=== PATIENT | female | born 1990 | race Caucasian/White ===

== ENCOUNTER → 2020-05-24 | Outpatient (CLI) | payer OTHER, SELFPAY ==
[2020-05-26 08:09] LABS: Chlamydia By Nucleic Acid AMP Negative (Negative)
[2020-05-26 13:08] LABS: Gonococcus By Nucleic Acid AMP Negative (Negative)
[2020-05-27 14:41] LABS: HPV Reflexed? NOT INDICATED
== END | disposition home or self-care (01) ==
LOC: LABSPEC 09:32
PROVIDERS: Visit Provider Obstetrics & Gynecology
DX: Z11.3 Encounter for screening for infections with a predominantly sexual mode of transmission (principal); Z12.4 Encounter for screening for malignant neoplasm of cervix
CPT/HCPCS: 87491; 87591; 88175; G0145

== ENCOUNTER → 2020-11-02 14:25 | Outpatient (CLI) | payer OTHER, SELFPAY | PROVIDERS: PCP Family Medicine; Referring Provider Obstetrics & Gynecology; Visit Provider Obstetrics & Gynecology | DX: Z03.818 Encounter for observation for suspected exposure to other biological agents ruled out (principal) | CPT/HCPCS: 87635; C9803; U0005; U0003 ==

== ENCOUNTER 2020-11-06 09:30 | Inpatient (IN) | payer SELFPAY, OTHER ==
--- NOTE | 2020-11-05 19:32 | PCM.HP.BLA ---
History and Physical Date of Admission: 11/06/20 ACOG ANTEPARTUM RECORD - HISTORY AND PHYSICAL (11/05/2020) Name: STEWART RIOS History of this : This is a 30 year old [id number] presents at 39 wks + 1 days gestation. She had 3 prior C-sections. She also desires permanent sterilization. OB Physician: Thor Acuna MD [facility]'s Physician: [facility] ...................................................................... : 1990 Age: 30 Address: [address] [place] [address] Phone: H) [phone] ([phone] Insurance Carrier: [facility] [id number] Emergency Contact: DEIDRA RIOS/SPOUSE [phone] ...................................................................... Final DAVINA: 11/11/20 By Ultrasound: 15 weeks 3 days PARITY: (G-Total Pregnancies P-Fullterm,Premature,Induced AB,Spont AB, Ectopics, Multiple,Living) DAVINA CONFIRMATION: By LMP: 02/05/20 Final DVAINA: 11/11/20 OB PROBLEM LIST: ALLERGIC TO BETADINE. Declines all genetics testing. Presumptive COVID at 24 weeks gestation Prior x 3; plan repeat with tubal ALLERGIES: Betadine Rash, itching No Known Drug Allergies MEDICATIONS: Supplement (s) [No Strength] mama bear prenatals SOCIAL HISTORY: Smoking - denies smoking Alcohol Use - denies drinking Diet - balanced Diet, caffeine < 2 drinks per day and water tries 64-90 oz Lifestyle - Exercise - active work and trying to walk daily. Employer - homemaker Job Description - Illicit Drug Use - denies use of street drugs Sexual Activity - [employer]IVE [employer] Residence - lives with Place of - [place] Spouse-Sig Other Name - Deidra Rios Spouse-Sig Other Occupation - construction/[employer] Spouse-Sig Other Phone No - [phone] Children Name(s) - Jacoby ManiAmy gonzalez PRIOR DELIVERY HISTORY DEL DATE GEST LAB WT LB WT OZ TYPE ANES LABOR TX 17 Sep 15 39 0 7 12 C-Sec Spinal No 19 Dec 17 39 0 8 6 C-Sec Spinal No 24 Aug 15 37 0 5 15 C-Sec Spinal No ANTEPARTUM FLOW CHART VISIT GE RTC FU F F AK U U DATE WK MD WKS HT PN HR M SS BP ED WT AK GL D EF ST __ ____ ___ __ __ ___ __ __ __ ___ __ __ __ ___ __ 04 Oct JM 1 38 V + + 126/86 sl 245 - - Sep JM 1 37 V + + 124/76 sl 243 tr - 1 Sep JMW 1 36 + + 122/80 sl 242 tr ne Aug JMW 2 33 + + 128/70 sl 240 tr - 08 Sep 27 JMW 3 30 + + 136/86 sl 238 - - 03 Aug 23 JMW 3 25 + + 116/74 sl 232 - - 06 Jul 19 JMW 4 21 + + 112/64 0 230 tr - ANTEPARTUM NOTE(S): Nov 02 2020: spontaneous ctx's Oct 26 2020: See note Oct 19 2020: Good FM Sep 26 2020: Vericosities Lt leg, encouraged support stockings Sep 05 2020: CBC,OGCT Today,Good FM,Feeling Well Aug 01 2020: Doing Well, Glucola Given Jul 04 2020: Doing Well, Comprehensive U/S COMPREHENSIVE ANTEPARTUM NOTE(S): Nov 02 2020: Stewart is here for a PNV. Good FM. Sl edema in ankles. Reports spontaneous ctx's. No concerns expressed at this time. States she is ready to have her . Nov 02 2020: 38wk, for repeat c/s by Dr. BRIONES 11/06/20. COVID testing done today. Oct 26 2020: Stewart is here for her PNV. She relates that she is not feeling well, as she as L sided low pelvic groin pain that started on Friday of this week, and is now radiating to her lower back, left side. She states that Tylenol does not relieve this discomfort, and that the discomfort is usually not bad in the morning, but by noon, it's really sore. She reports good FM. She feels occasional mild cramping. Denies spotting/LoF. Long dip urine shows: specific gravity of 1.025, and TR protein; all other values negative. AW Oct 26 2020: 37wk, pelvic pain. Urine dip neg. CE /h. Scheduled repeat c/s here in [place] 11/06/20 w/ Dr. Acuna. Needs COVID testing next week. Oct 19 2020: Stewart is here for PNV and pre-op for /tubal on 11-06-2020. Having good FM. Slight edema noted in ankles. Increase by end of day. Urine dipped tr and neg. Consents signed and pre-op instructions given. Voiced understanding. Ensure bottle given. Instructed to call and schedule COVID test. Questions answered. LSS Sep 05 2020: Rx phenergan with codeine syrup given for non-prooductive cough past 4-5 days. 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 She tried nursing her first baby (37 w male PCS) without success and formula fed the other two. Suggested considering nursing winter baby for immune system advantages. Asking her friends who've nursed for advice or taking the office BF class. Her is Deidra who works in [employer]. They are pleased about the pg. Their children are two boys ages 5 and 3 and a daughter 1 1/2 y. Genetics Screening form completed at prev visit noting no family issues and she declines any genetics testing. Stewart is a lifetime non smoker, denies street drug use and any alcohol use. Her diet sounds balanced w occ tea and 64-90 oz of water daily. Stewart is very active with her family and chores and does try to walk any day she can. She has an allergy to Betadine which causes a rash and itching noted at her PCS. States I always remind them to use the other stuff Warning signs in pg reviewed as well as wearing seatbelt low on her abdomen regardless of location in a vehicle, the importance of protein in her diet, reaching the office after hours and OTC meds ok to take prn plus lifting restriction of 25# with understanding voiced. She's had chickenpox and they have no cats. She is aware of litter box issues. They have a copy of What to Expect. Enc to call w any concerns. Visit lasted 30 min. Her phone cut us off three times and I called back each time. Crow DENNY. NEW May 23 2020: Stewart presents for her Missed Menses feli't. SHe is a 29yo G 4, P 3 with hx of 3 prior C-sections. Pt is planning to deliver via R/ with BTO and prefers [facility] if possible. Positive UPT in office today. LMP 02/05/20, DAVINA by LMP 11/11/20. Pt is taking a PNV. She reported significant Nausea, but sts this subsided approx 3-4wks ago. No questions or concerns voiced. NOB packet given. Genetics screening questionairre completed and AFP reviewed with same declined. Depression screen is a score of 1 today. JT REVIEW OF SYSTEMS: GENERAL - Denies fever, or chills SKIN - Denies rash, new skin lesions, or change in moles EYES - Denies blurred vision, or change in visual acuity EARS - Denies ear pain, or difficulty hearing NOSE - Denies nasal congestion, discharge, or bleeding MOUTH - Denies sore throat, or difficulty swallowing NECK - Denies pain or swelling RESPIRATORY - Denies shortness of breath, cough, wheezing CARDIOVASCULAR - Denies palpitations, chest pain, orthopnea, PND, peripheral edema, syncope or claudication GASTROINTESTINAL - Denies nausea, vomiting, diarrhea, constipation, Denies abdominal pain, melena and or bright red blood GENITOURINARY - Denies dysuria, frequency of urination, urgency, or hesitancy MUSCULOSKELETAL - Denies joint or muscle pain, or back pain NEUROLOGICAL - Denies localized numbness, weakness, or tingling PSYCHIATRIC - Denies depression, anxiety, substance abuse or suicide attempts ENDOCRINE - Denies heat or cold intolerance, weight loss or gain, increasing thirst HEMATO-IMMUNOLOGIC - Denies easy bruising, bleeding, oral ulcerations or recurrent infections GENETICS SCREENING: Age 35+ years: No Thalassemia: No Neural Tube Defect: No Down Syndrome: No CHRISTIANA-SACHS: No Sickle Cell Disease: No Hemophilia: No Musc. Dystrophy: No Cystic Fibrosis: No-declines screening [place] Chorea: No Mental Retardation: No Fragile X: No Other genetic: No Other defects: No SABs/still births: No Drugs since LMP: No INFECTION HISTORY: High risk AIDS: No High risk Hepatitis: No Exposed to TB: No Exposed to Herpes: No Rash/viral illness since LMP: No History of STD: No MENSTRUAL HISTORY: *Menses Amount/Duration: 4-5 DAYSMenses Regularity: RegularFrequency: monthly* PAST SUMMARY: PARITY: 1. Total Pregnancies............ 4 2. Full Term Pregnancies........ 3 3. Premature.................... 0 4. Abortions - Induced.......... 0 5. Abortions - Spontaneous...... 0 6. Ectopics..................... 0 7. Multiple Births.............. 0 8. Living Children.............. 3 PAST #1: Date of :.................. 05/22/15 Gestation Weeks:................ 37 Length of labor(hours):......... 0 Sex:............................ M Weight-lbs:............... 5 Weight-oz:................ 15 Type of Delivery:............... C-Sect Type of Anesthesia:............. Spinal Place of Delivery:.............. [place] Treatment of Labor?:.... No Comment: [facility] PAST #2: Date of :.................. 01/15/17 Gestation Weeks:................ 39 Length of labor(hours):......... 0 Sex:............................ M Weight-lbs:............... 8 Weight-oz:................ 6 Type of Delivery:............... C-Sect Type of Anesthesia:............. Spinal Place of Delivery:.............. [place] Treatment of Labor?:.... No Comment: HIGH BP PAST #3: Date of :.................. 09/14/18 Gestation Weeks:................ 39 Length of labor(hours):......... 0 Sex:............................ F Weight-lbs:............... 7 Weight-oz:................ 12 Type of Delivery:............... C-Sect Type of Anesthesia:............. Spinal Place of Delivery:.............. [place] Treatment of Labor?:.... No Comment: HIGH BP PHYSICAL EXAMINATION General Appearence: 30 yo female in no acute distress Vital Signs: AF, VSS Heart: RRR without rubs or gallops Lungs: CTA x 2 Breasts: deferred Abdomen: gravid Pelvis: Cervix: Presentation: cephalic Station: Fetus: Size: AGA Movement: present Heart: present LAB TEST(S) ORDERED SINCE:02/15/20 09/05/2020 GLUCOSE CHALLENGE 50GM 1 HOUR 09/05/2020 CBC + DIFF 05/31/2020 Initial OB Labs 05/27/2020 PAP IG W/REFLEX HR HPV APTIMA 05/26/2020 CHLAMYDIA/GC PAUL APTIMA 05/25/2020 POMERENE 3 [CCL] 05/25/2020 HEPATITIS C AB IA W/CONFIRM [CCL] 05/23/2020 URINALYSIS 05/23/2020 TSH 05/23/2020 CBC + DIFF 05/23/2020 BB TYPE 11/03/2020 COVID 19, PAUL SENDOUT == ==== Order Observation Description Value Ref_Range A* Site == ==== COVID 19, PAUL NOTE [facility] COVID 19, PAUL COVID-19,PAUL Not Detected Not Detected LCI This nucleic acid amplification test was developed and its performance characteristics determined by [facility]. Nucleic acid amplification tests include RT- PCR and TMA. This test has not been FDA cleared or approved. This test has been authorized by FDA under an Emergency Use Authorization (EUA). This test is only authorized for the duration of time the declaration that circumstances exist justifying the authorization of the emergency use of in vitro diagnostic tests for detection of SARS-CoV-2 virus and/or diagnosis of COVID-19 infection under section 564(b)(1) of the Act, 21 U.S.C. 360bbb-3(b) (1), unless the authorization is terminated or revoked sooner. When diagnostic testing is negative, the possibility of a false negative result should be considered in the context of a patient's recent exposures and the presence of clinical signs and symptoms consistent with COVID-19. An individual without symptoms of COVID-19 and who is not shedding SARS-CoV-2 virus would expect to have a negative (not detected) result in this assay. GLUCOSE CHALLEN NOTE [facility] GLUCOSE CHALLEN GLUCOSE CHALLENGE 50GM 1 [facility] GLUCOSE CHALLENGE 50 GMS 1 HOUR GLUCOSE CHALLEN GLUCOSE 1HR 81 mg/dl 70 - 140 [facility] CBC + DIFF NOTE [facility] CBC + DIFF CBC + DIFF [facility] CBC-COMPLETE BLOOD COUNT CBC + DIFF WBC 6.3 x 10EE3/UL 4.5 - 10.8 [facility] CBC + DIFF RBC 3.84 x 10EE6/UL 4.10 - 5.30 L [facility] CBC + DIFF HEMOGLOBIN 12.0 g/dl 12.0 - 16.0 [facility] CBC + DIFF HEMATOCRIT 35.0 % 34.0 - 46.0 [facility] CBC + DIFF MCV 91 fl 80 - 99 [facility] CBC + DIFF MCH 31 pg 27 - 33 [facility] CBC + DIFF MCHC 34 X10 3 32 - 36 [facility] CBC + DIFF RDW/CV 13.4 % 12.0 - 15.6 [facility] CBC + DIFF PLATELET 248 x10EE3/UL 150 - 450 [facility] CBC + DIFF MPV 6.3 fl 6.6 - 10.5 L [facility] AUTOMATED DIFFERENTIAL CBC + DIFF NEUT % 51.3 % 46.0 - 76.0 [facility] CBC + DIFF LYMPH % 30.0 % 20.0 - 45.0 [facility] CBC + DIFF MONOS % 13.6 % 0.0 - 10.0 H [facility] CBC + DIFF EO % 4.2 % 0.0 - 7.0 [facility] CBC + DIFF BASO % 0.9 % 0.0 - 2.0 [facility] CBC + DIFF LYMPH # 1.90 x10EE3/UL 0.80 - 2.80 [facility] CBC + DIFF NEUT # 3.20 x10EE3/UL 1.50 - 7.10 [facility] CBC + DIFF MONO # 0.90 x10EE3/UL 0.20 - 1.00 [facility] CBC + DIFF EO # 0.30 x10EE3/UL 0.00 - 0.50 [facility] CBC + DIFF BASO # 0.10 x10EE3/UL 0.00 - 0.10 [facility] CBC + DIFF MANUAL DIFF N/A [facility] CBC + DIFF MORPHOLOGY N/A [facility] {CD] HEPATITIS C AB NOTE [facility] HEPATITIS C AB HEPATITIS C AB IA Negative NEGAT [facility] [place] [id number] Luke Da Silva III, M.D. [id number] POMERENE 3 [CCL NOTE [facility] POMERENE 3 [CCL RPR Non Reactive NR [facility] [CCL HEPATITIS B SURF. AG Negative NEGAT [facility] [CCL RUBELL[place] IGG AB, QUAL Positive NEGAT A [facility] Sample is considered positive for IgG antibodies to rubella virus. A positive result indicates previous exposure to Rubella virus or vaccination. [place] 3 [CCL RUBELLA IGG AB 2.11 Indexlue [facility] Index values are interpreted as follows: Negative specimens <0.90 Equivocol specimens 0.90 to 0.99 Positive specimens >0.99 The magnitude of the measured result is not indicative of the amount of antibody present. [place] [address] [place] [address] Luke Da Silva III, M.D. [id number] BB TYPE NOTE [facility] BB TYPE BB TYPE [facility] TYPE, Rh, AND SCREEN BB TYPE ABO A [facility] BB TYPE RH POS [facility] BB TYPE ANTIBODY SCR negative [facility] URINALYSIS NOTE [facility] URINALYSIS URINALYSIS [facility] URINALYSIS URINALYSIS SPECIMEN TYPE Clean catch [facility] URINALYSIS COLOR p.yel NORMAL: YELLOW [facility] CLARITY clear NORMAL: CLEAR [facility] URINALYSIS PH 6 NORMAL: 5.0-8.0 [facility] URINALYSIS PROTEIN NEG NORMAL: NEGATIV [facility] URINALYSIS GLUCOSE NORM NORMAL: NORMAL [facility] URINALYSIS KETONE NEG NORMAL: NEGATIV [facility] URINALYSIS BILIRUBIN NEG NORMAL: NEGATIV [facility] URINALYSIS BLOOD 10 NORMAL: NEGATIV A [facility] URINALYSIS UROBILINOG NORM NORMAL: NORMAL [facility] URINALYSIS SP GRAVITY 1.020 NORMAL: 1.010-1 [facility] URINALYSIS NITRITE NEG NORMAL: NEGATIV [facility] URINALYSIS LEUKOCYTES NEG NORMAL: NEGATIV [facility] URINALYSIS MICROSCOPIC SEE BELOW [facility] MICROSCOPIC URINALYSIS WBC NONE 0-5/hpf [facility] URINALYSIS RBC 0-5 0-3/hpf [facility] URINALYSIS CASTS NONE [facility] URINALYSIS CRYSTALS NONE [facility] URINALYSIS AMORPHOUS NONE [facility] URINALYSIS BACTERIA NONE [facility] URINALYSIS EPI CELLS OCC [facility] URINALYSIS MUCOUS NONE [facility] URINALYSIS YEAST NONE [facility] TSH NOTE [facility] TSH TSH 2.58 uIU/ml 0.34 - 5.60 [facility] CBC + DIFF NOTE [facility] CBC + DIFF CBC + DIFF [facility] CBC-COMPLETE BLOOD COUNT CBC + DIFF WBC 11.2 x 10EE3/UL 4.5 - 10.8 H [facility] CBC + DIFF RBC 4.08 x 10EE6/UL 4.10 - 5.30 L [facility] CBC + DIFF HEMOGLOBIN 12.6 g/dl 12.0 - 16.0 [facility] CBC + DIFF HEMATOCRIT 36.7 % 34.0 - 46.0 [facility] CBC + DIFF MCV 90 fl 80 - 99 [facility] CBC + DIFF MCH 31 pg 27 - 33 [facility] CBC + DIFF MCHC 34 X10 3 32 - 36 [facility] CBC + DIFF RDW/CV 14.7 % 12.0 - 15.6 [facility] CBC + DIFF PLATELET 268 x10EE3/UL 150 - 450 [facility] CBC + DIFF MPV 6.7 fl 6.6 - 10.5 [facility] AUTOMATED DIFFERENTIAL CBC + DIFF NEUT % 70.0 % 46.0 - 76.0 [facility] CBC + DIFF LYMPH % 21.7 % 20.0 - 45.0 [facility] CBC + DIFF MONOS % 5.5 % 0.0 - 10.0 [facility] CBC + DIFF EO % 2.2 % 0.0 - 7.0 [facility] CBC + DIFF BASO % 0.6 % 0.0 - 2.0 [facility] CBC + DIFF LYMPH # 2.40 x10EE3/UL 0.80 - 2.80 [facility] CBC + DIFF NEUT # 7.80 x10EE3/UL 1.50 - 7.10 H [facility] CBC + DIFF MONO # 0.60 x10EE3/UL 0.20 - 1.00 [facility] CBC + DIFF EO # 0.20 x10EE3/UL 0.00 - 0.50 [facility] CBC + DIFF BASO # 0.10 x10EE3/UL 0.00 - 0.10 [facility] CBC + DIFF MANUAL DIFF N/A [facility] CBC + DIFF MORPHOLOGY N/A [facility] PAP IG W/REFLEX NOTE [facility] PAP IG W/REFLEX DIAGN Comment . LC NEGATIVE FOR INTRAEPITHELIAL LESION OR MALIGNANCY. PAP IG W/REFLEX ADEQ Comment . LC Satisfactory for evaluation. Endocervical and/or squamous metaplastic cells (endocervical component) are present. PAP IG W/REFLEX PERFORM Comment . Maci Barbosa, Mining Manager (ASCP) PAP IG W/REFLEX TEST METHOD Comment . LC This liquid based ThinPrep(R) pap test was screened with the use of an image guided system. PAP IG W/REFLEX COMM . . PAP IG W/REFLEX PAPSMR Comment . LC The Pap smear is a screening test designed to aid in the detection of premalignant and malignant conditions of the uterine cervix. It is not a diagnostic procedure and should not be used as the sole means of detecting cervical cancer. Both false-positive and false-negative reports do occur. PAP IG W/REFLEX HPV RFLX Comment . LC The HPV DNA reflex criteria were not met with this specimen result therefore, no HPV testing was performed. Performed at: [address], [place] [id number] Door To Door Salesperson: Kelly Soler MD, Phone: [phone] CHLAMYDIA/GC NA NOTE [facility] CHLAMYDIA/GC NA CHLAMY,NUC ACID Negative Negative LC CHLAMYDIA/GC NA GC BY NUC ACID Negative Negative LC Performed at: =[address] [place] [id number] Door To Door Salesperson: Kelly Soler MD, Phone: [phone] Initial OB Labs HIV Test negative(Scanned) Negative [facility] == ==== Impression /Plan: 39 wks + 1 days intrauterine . Plan R-LTCCS and BTO. Pt desires bilateral salpingectomy. Preparations in progress for delivery.
[2020-11-06] VITALS (16 sets, daily range): BP systolic 102–123; BP diastolic 60–82; PULSE 66–90; RESP 16–18; TEMP 36.1–36.6; O2SAT 95–99; BMI 35.9
[2020-11-06] MEDS: Lactated Ringers 1,000 ML 999 ML IV (10:00)
[2020-11-06 10:16] LABS: Absolute Lymphocyte Count 1.98 X10^3/uL (0.83-4.51); Absolute Neutrophil Count 7.8 X10^3/uL (2.0-7.7); Basophil# 0.04 X10^3/uL; Basophil% 0.4 % (0-1); Eosinophil# 0.14 X10^3/uL; Eosinophils% 1.3 % (0-5); Hematocrit 37.3 % (37-47); Hemoglobin 12.7 g/dL (12.0-15.0); Lymphocyte # 1.98 X10^3/ul (4.0); Lymphocyte % 18.9 % (19-41); Mean Corpuscular Hgb 30.8 pg (27.0-32.0); Mean Corpuscular Volume 90.3 fL (81-99); Mean Platelet Vol. 8.5 fl (6.2-12.0); Monocyte# 0.47 X10^3/uL; Monocyte% 4.5 % (0-10); NRBC Flagged by Analyzer 0 % (0-5); Neutrophil # 7.79 X10^3/uL (2.7-7.7); Neutrophil % 74.3 % (47-70); Platelet Count 176 K/mm3 (150-450); RBC Distribution Width CV 13.3 % (11.6-14.6); RBC Distribution Width SD 43.2 fl (35.1-43.9); Red Blood Count 4.13 M/mm3 (4.2-5.4); White Blood Count 10.5 K/mm3 (4.4-11.0)
[2020-11-06] MEDS: Acetaminophen 500 MG Tablet 1000 MG PO ×3 (10:39→22:24)
[2020-11-06] MEDS: Lactated Ringers 1,000 ML 150 ML IV (11:03)
[2020-11-06] MEDS: Sodium Citrate/Citric Acid 30 ML UDC PO (11:03)
[2020-11-06] MEDS: Cefazolin 2 GM in 0.9% Normal Saline 100 ML IV (11:19)
--- NOTE | 2020-11-06 11:24 | OP.PCM_ITS ---
Delivery Classification: Scheduled Final DAVINA: 11/11/20 Gestational age: 39 Weeks and 2 Days slumber room attendant: Dami Rahman Type of Anesthesia:: Spinal - With Duramorph Implants Used: None Date of Procedure: 11/06/20 Pre-Operative Diagnosis: Prior Section and Desires Permanent Sterilization Post-Operative Diagnosis: Prior Section and Desires Permanent Sterilization Description of Procedure: Surgeon: Thor Acuna MD, FACOG Anesthesia: Kaden Anguiano CRNA Procedure: Repeat Low Transverse Cervical Caesarean Section And Bilateral Salpingectomy Findings: Viable female with Apgars of 8/9 in occiput anterior presentation with clear amniotic fluid and normal three-vessel placenta. Indication: This is a 30-year-old who presents for her fourth at 39+ weeks gestation. care has otherwise been uneventful. The patient has been counseled regarding the risk and indications of this procedure including the possibility of bleeding infection and injury to surrounding structures such as bowel bladder. She also desires permanent sterilization. Patient has been counseled regarding the permanent nature of the procedure, the failure rate of 1 to 2%, and the availability of other nonpermanent control options. All questions were answered. Procedure: Patient was taken to the operating room where after spinal anesthesia was placed, the patient was prepped and draped in usual sterile fashion and a Gaviria catheter was placed. The abdomen was entered through the patient's prior Pfannenstiel incision and peritoneum was entered bluntly. After developing a bladder flap on the lower uterine segment a low transverse incision was made on the uterus and head was easily delivered onto the operative field the nose mouth and oropharynx were bulb suctioned. Subsequently a viable female infant was born with Apgars of 8/9. The infant was noted to cry move all extremities vigorously on the operative field. The umbilical cord was doubly clamped and ligated and handed to the nursery personnel who were present for the delivery. Placenta was delivered with uterine inversion noted and the cord was noted to be 3 vessels and normal. Uterus was exteriorized and remaining placental tissue was removed. The uterus was then closed in 2 layers first with running locked 0 Vicryl suture followed by a second imbricating layer with 0 Vicryl suture. 0 Vicryl suture was then used in a horizontal mattress interrupted fashion to affect final hemostasis of the uterine incision line. Normal fallopian tubes and ovaries were visualized and the tubes were removed by ligating the mesosalpinx with the LigaSure device to the uterus. The uterus was returned to the pelvis. Hemostasis was noted and rectus abdominis muscles were reapproximated in the midline with interrupted Number 0 Vicryl suture in a horizontal mattress fashion. Fascia was closed with running Number 1 PDS Strata fix suture. Subcutaneous tissue was irrigated with copious amounts of saline solution and then closed with running 3-0 Vicryl suture. Skin was closed with 4 -0 monocryl suture in a running subcuticular fashion. Steri strips and a Mepilex dressing were placed across the incision. The patient tolerated the procedure well and was taken to the recovery room in satisfactory condition. Sponge, needle, and instrument counts were all reportedly correct. EBL was less than 500 cc. Ancef 2 gms IV was given prior to the procedure. Spicemen to Pathology: Bilateral fallopian tubes Complications: None Amniotic Fluid Description: Clear Placenta Disposition: [facility] Specimen(s) sent to pathology: Bilateral fallopian tubes Drain: Gaviria to straight drain Fluids Replaced: Crystalloid Cord Entanglement: None Cord Vessel Description: 3 Vessels Esitmated Blood Loss (ml): 500 cc Infant Gender: Female (1 minute): 8 (5 minute): 9 Antibiotic Given: Ancef 2 grams IV x1 Pt instructed on risks of surgery: Bleeding, Infection, Permanency, Failure Rate of 1 to 2%, Injury to surrounding structure(s) including bowel and bladder, Availability of other non-permanent control options Complications: None - Admit VTE Documentation VTE Present on Admission: Yes VTE Mechan Device Prophylaxis: SCD's VTE Pharm Prophylaxis ordered?: Yes
--- NOTE | 2020-11-06 11:27 | DCINST_ITS ---
Discharge Diet: No Restrictions Discharge Activity: May not drive while taking narcotic pain medications., May Shower, May Take a Tub Bath May resume sexual activity in: 4-6 weeks Lifting Restrictions: 20 pounds Additional Activity Instructions:: Nothing in the vagina for 4-6 weeks. You may return to work/school in 6 weeks. Call your doctor if your incision/area has: Continuous Slow Oozing, Sudden Increased Bleeding, Increased Pain/ Swelling, Increased Redness, Foul Smelling Discharge Call your doctor if you observe: Fever of 101 or Higher, Inability to urinate, Inability to have a bowel movement, Using more than one pad per hour Additional Instructions: If you experience any of the following, contact your healthcare provider. * Bleeding that soaks a pad every hour for 2 hours * Fever 100.4 or higher * Unrelieved incision or abdominal pain * Swelling, redness, discharge or bleeding from your incision or episiotomy site * Your incision begins to separate * Problems urinating (including inability to urinate or burning while urinating). * Visual changes * Severe headache * Flu-like symptoms * Pain or redness in one of both of your breasts * Pain, warmth, tenderness or swelling in your legs, especially the calf area * Frequent nausea and vomiting * Symptoms of depression or anxiety If you experience any of the following, call 911 or go to the nearest Emergency Room. * Chest pain * Problems breathing * Seizure activity * Partial or complete paralysis of a body part, slurred speech, weakness or drooping of the face, or a sudden inability to walk or hold your balance Allergies/Adverse Reactions: Allergies povidone-iodine [From Betadine] Allergy (Verified 11/06/20 09:59) Itching rash soap [From Betadine] Allergy (Verified 11/06/20 09:59) Itching rash Medications to take at Discharge Docusate Sodium [Colace] 100 mg PO BID PRN PRN #60 cap 11/06/20 Oxycodone [Oxyir] 5 mg PO Q6H PRN PRN 7 Days #14 tablet 11/06/20 Vit No.130/Iron/Folic [ Tablet] 1 tab PO DAILY 11/06/20 The following prescriptions were given: Docusate Sodium [Colace] 100 mg PO BID PRN PRN #60 cap PRN Reason: Constipation Transmission Status: Pending to [facility] Oxycodone [Oxyir] 5 mg PO Q6H PRN PRN 7 Days #14 tablet PRN Reason: Pain Score 6-10 Transmission Status: Sent to [facility] Follow-Up: Call to make an appointment with your doctor for an incision check in 1-2 weeks. You will also need a 6 week post- follow up appointment. Test results from this visit will be discussed in further detail at your follow- up appointment, if applicable. Please Follow Up With: Thor Acuna MD - [phone] When: Call to make an appointment for an incision check in 2 weeks. Primary Care Physician: Drew Capellan MD [Primary Care Provider] -
--- NOTE | 2020-11-06 12:40 | FALS_PTH ---
PATIENT: STEWART SHAH LOC: [facility] U#:[id number] AGE/SX: 30/F ROOM: WP006 RE11/06/[address]: Dr. Thor Acuna MD : 1990 BED: 1 DIS: 11/07/2020 SPEC #: [id number] RECD: 11/06/20 13:17 STATUS: BENITEZ HOOVERCatrachito #: [id number] TYRONE: 11/06/20 12:[address]: Thor Acuna DEPT: SURGICAL PATHOLOGY RECD BY: Marzena Alvarez ENTERED: 11/06/20 13:18 SP TYPE: FALL TUBES OTHR DR: Dr. Drew Capellan MD Tissues: Fallopian tube Procedures: Surgery Specimen Level II HEADER OPERATION: Tubal ligation PRE-OP DIAGNOSIS: Sterilization TISSUE SUBMITTED: Fallopian tubes, suture in right MICROSCOPIC DIAGNOSIS Bilateral fallopian tubes, salpingectomy: Bilateral fallopian tubes including fimbrial ends, no pathologic diagnosis. SJ:ozzy 11/07/2020 MICROSCOPIC DESCRIPTION Slides are reviewed. GROSS DESCRIPTION Received in fixative is one container labeled with the patient's name and designated bilateral fallopian tubes, suture right tube. The specimen consists of bilateral fallopian tubes including fimbrial ends. The right fallopian tube measures 7 cm in length and 0.7 cm in diameter and the left fallopian tube measures 6.5 cm in length and 0.8 cm in diameter. Sections reveal unremarkable cut surfaces. Mainstreaming Facilitator sections are submitted in two cassettes as follows: 1 - right fallopian tube, 2 - left fallopian tube. / CLARENCE:ozzy 11/06/20 TC:4 CPT: 93101 x2
[2020-11-06] MEDS: Oxytocin 30 units/NS 500 ml 30 UNITS/500 ML IV.SOLN 167 UNITS IV ×2 (12:43→16:05)
[2020-11-06 12:50] LABS: Pathology Specimen OB SEE PATHOLOGY REPORT
--- NOTE | 2020-11-06 13:02 | NURSING ---
ligasure lot# [id number] exp date 01/26/2025
[2020-11-06] MEDS: Ketorolac 30 MG/ML Syringe IV ×2 (17:28→23:55)
[2020-11-06] MEDS: 0.9% Saline Lock 10 ML Syringe IV ×3 (17:28→23:54)
[2020-11-06] MEDS: Cefazolin 1 GM/50 ML BAG IV (19:36)
[2020-11-06] MEDS: Zolpidem Tartrate 5 MG Tablet PO (22:24)
[2020-11-06] MEDS: Enoxaparin 40 MG/0.4 ML Syringe SC (22:25)
[2020-11-07] MEDS: 0.9% Saline Lock 10 ML Syringe IV ×2 (03:37→06:06)
[2020-11-07] MEDS: Cefazolin 1 GM/50 ML BAG IV (03:42)
[2020-11-07 04:10] VITALS: BP 98/61; PULSE 70; RESP 18; TEMP 36.2; O2SAT 96
[2020-11-07] MEDS: Acetaminophen 500 MG Tablet 1000 MG PO ×2 (04:10→11:15)
[2020-11-07 04:38] LABS: Hematocrit 31.8 % (37-47); Hemoglobin 10.6 g/dL (12.0-15.0); Mean Corp Hgb Conc 33.3 g/dL (32-36); Mean Corpuscular Hgb 30.3 pg (27.0-32.0); Mean Corpuscular Volume 90.9 fL (81-99); Mean Platelet Vol. 8.5 fl (6.2-12.0); Platelet Count 129 K/mm3 (150-450); RBC Distribution Width CV 13.5 % (11.6-14.6); RBC Distribution Width SD 44.6 fl (35.1-43.9); White Blood Count 11.9 K/mm3 (4.4-11.0)
[2020-11-07] MEDS: Ketorolac 30 MG/ML Syringe IV ×2 (06:05→13:09)
--- NOTE | 2020-11-07 07:24 | PN.OBGYN_ITS ---
Subjective: Patient without complaints. Tolerating diet well. Good urine output. Wants to go home later today if baby is able to go. Positive flatus. Objective: Wound is clean, dry, intact with Mepilex dressing in place. Good urine output. Hemoglobin okay. - Physical Exam Vitals/I&O's: Vital Signs Temp Pulse Resp BP Pulse Ox 97.2 F L 70 18 98/61 96 11/07/20 04:10 11/07/20 04:10 11/07/20 04:10 11/07/20 04:10 11/07/20 04:10 Oxygen Delivery Method Room Air Weight: 243 lb 6.245 oz Body Mass Index (BMI) 35.9 Intake and Output for Last 24 Hours 11/05/20 11/06/20 11/07/20 23:59 23:59 23:59 Intake Total 2732.5 / 2732.5 50 / 50 Output Total 1550 / 1550 Balance 1182.5 / 1182.5 50 / 50 Laboratory Results 11/06/20 10:00: WBC 10.5, RBC 4.13 L, Hgb 12.7, Hct 37.3, MCV 90.3, MCH 30.8, MCHC 34.0, RDW Std Deviation 43.2, RDW Coeff of Dany 13.3, Plt Count 176, MPV 8.5, Immature Gran % (Auto) 0.600, Neut % (Auto) 74.3 H, Lymph % (Auto) 18.9 L, Sunflower % (Auto) 4.5, Eos % (Auto) 1.3, Baso % (Auto) 0.4, Absolute Neuts (auto) 7.8 H, Absolute Lymphs (auto) 1.98, Nucleated RBC % 0 11/06/20 10:00: Blood Type A POSITIVE, Antibody Screen NEGATIVE 11/07/20 04:20: WBC 11.9 H, RBC 3.50 L, Hgb 10.6 L, Hct 31.8 L, MCV 90.9, MCH 30.3, MCHC 33.3, RDW Std Deviation 44.6 H, RDW Coeff of Dany 13.5, Plt Count 129 L, MPV 8.5 Current Medications Acetaminophen (Acetaminophen 500 Mg Tablet) 1,000 mg PO Q6H JOSE MANUEL Last Admin: 11/07/20 04:10 Dose: 1,000 mg Documented by: Bisacodyl (Bisacodyl 10 Mg Suppository) 10 mg RECTAL UD PRN PRN Reason: If no BM Enoxaparin Sodium (Enoxaparin 40 Mg/0.4 Ml Syringe) 40 mg SC DAILY [facility] Last Admin: 11/06/20 22:25 Dose: 40 mg Documented by: Hydrocortisone (Hydrocortisone 2.5% Crm) 1 applic TOPICAL TID PRN PRN; Protocol PRN Reason: Discomfort Ibuprofen (Ibuprofen 600 Mg Tablet) 600 mg PO Q6 [facility] Ketorolac Tromethamine (Ketorolac 30 Mg/Ml Syringe) 30 mg IV Q6 [facility] Stop: 11/11/20 13:18 Last Admin: 11/07/20 06:05 Dose: 30 mg Documented by: Methylergonovine Maleate (Methylergonovine 0.2 Mg/Ml Ampul) 0.2 mg IM X1 PRN PRN Reason: Uterine Atony Ondansetron HCl (Ondansetron 4 Mg/2 Ml Vial) 4 mg IV Q4H PRN PRN PRN Reason: Nausea Oxycodone HCl (Oxycodone 5 Mg Tablet) 5 - 10 mg PO Q4H PRN PRN PRN Reason: Pain Score 4-10 Prochlorperazine Edisylate (Prochlorperazine 10 Mg/2 Ml Vial) 10 mg IV Q6H PRN PRN PRN Reason: NAUSEA Senna/Docusate Sodium (Senna/Docusate Sodium 1 Tablet) 1 - 2 tablet PO DAILY [facility] Simethicone (Simethicone 80 Mg Tablet) 80 mg PO PCHS PRN PRN Reason: Indigestion/stomach pain Sodium Chloride (0.9% Saline Lock 10 Ml Syringe) 5 - 15 ml IV UD PRN PRN Reason: SALINE FLUSH Last Admin: 11/07/20 06:06 Dose: 10 ml Documented by: Zolpidem Tartrate (Zolpidem Tartrate 5 Mg Tablet) 5 mg PO QHS PRN PRN PRN Reason: SLEEP Last Admin: 11/06/20 22:24 Dose: 5 mg Documented by: Medical Necessity - Tobacco Use Smoking Status: Never smoker Assessment/Plan Doing well postoperative day #1 status post repeat and bilateral salpingectomy. Will discharge to home later today if baby is able to go. Home- going instructions given.
[2020-11-07 10:09] VITALS: BP 107/67; PULSE 83; RESP 16; TEMP 36.3; O2SAT 96
[2020-11-07] MEDS: Enoxaparin 40 MG/0.4 ML Syringe SC (10:15)
[2020-11-07] MEDS: Senna/Docusate Sodium 1 Tablet PO (10:15)
[2020-11-07 14:27] VITALS: BP 119/82; PULSE 75; RESP 16; TEMP 36.1; O2SAT 97
== END 2020-11-07 15:15 | disposition home or self-care (01) | DRG 785 ==
PROVIDERS: Admitting Provider Obstetrics & Gynecology; PCP Family Medicine; Referring Provider Obstetrics & Gynecology; Visit Provider Obstetrics & Gynecology
PROC: 10D00Z1 Extraction of Products of Conception, Low, Open Approach (ICD-10-PCS; CPT 59514; principal; 2020-11-06 11:45)
DX: O34.211 Maternal care for low transverse scar from previous cesarean delivery (principal); Z37.0 Single live birth; Z3A.39 39 weeks gestation of pregnancy; Z30.2 Encounter for sterilization
CPT/HCPCS: 85025; 85027; 86850; 86900; 86901; 88302; 99218; J7120; A4216; G0378; J2405